=== PATIENT | female | born 1970 | race Caucasian/White ===

== ENCOUNTER 2021-03-15 11:04 | Day surgery (SDC) | payer OTHER ==
[~2021-03-15] VITALS: Ht 167.6 cm; Wt 108.0 kg
[~2021-03-15 11:04] MED LIST: CEPH500 PO; IBUP200 PO; PHENA200 PO
--- NOTE | 2021-03-15 12:20 | NUR ---
Ambulatory in Day Surgery History, Chart, Medications and Allergies reviewed before start of procedure.History, Chart, Medications and Allergies reviewed before start of procedure.Lungs clear T/O to Auscultation. Patient confirms NPO status and agrees with scheduled surgery. Patient reports completing Chlorhexadine shower X2 prior to admission to hospital. ALL BELONINGS PLACED UNDER BED. SENT BLOOD TO LAB FOR BLOOD TYPE CHECK.
--- NOTE | 2021-03-15 17:01 | NUR ---
1420 PT ARRIVED TO UNIT FROM DAY SURGERY VIA ALY, PT & ORIENTED TO ROOM AND UNIT. PROVIDED PT WITH WATER PER DIET ORDERS TOLERATED. PT RESTING IN BED AT THIS TIME, CALL LIGHT WITHIN REACH. AT BEDSIDE. WILL CONTINUE TO MONITOR. DENIES ANY PROBLEMS AT THIS TIME. DENIES N/V, N/T TO ALL EXTREMITIES.
--- NOTE | 2021-03-15 18:14 | NUR ---
SHIFT SUMMARY PT ARRIVED TO UNIT AROUND 1420 FROM DAY SURGERY. A&OX4, VSS, BLOOD PRESSURE HAS BEEN ELEVATED ALL DAY PER RN AURORA FROM DAY SURGERY, BP HAS BEGUN TO COME DOWN SOME. PT IS POD0 TOTAL LAP VAGINAL HYSTERECTOMY W/ ROBOTIC ASSIST, PT HAD EXTENSIVE ABDOMINAL ADHESIONS. 4 LAP SITES TO ABD W/ DERMABOND, C/D/I. PT RECEIVING LR AT 125ML/HR. PT TOLERATING PO FLUIDS AT THIS TIME. BROWN IN PLACE, DRAINING CLEAR YELLOW URINE. PT DENIES N/V AND N/T TO ALL EXTREMITIES. PAIN WELL CONTROLLED. PT REPORTS HEADACHE AFTER ADMINISTRATION OF MORPHINE, OFFERED COLD PACK FOR FOREHEAD, PT DENIED AND ASKED FOR ICE TEA WHICH SHE DRINKS REGULARLY. NO ACUTE EVENTS T/O SHIFT. PT RESTING IN BED AT THIS TIME, CALL LIGHT WITHIN REACH. WILL CONTINUE TO MONITOR & REPORT TO ONCOMING RN.
--- NOTE | 2021-03-15 18:50 | NUR ---
RECEIVED REPORT AND ASSUMED CARE OF PT. SHE IS AWAKE AND ALERT, LYING IN BED WITH HER AT BEDSIDE. SHE REPORTS MILD-MODERATE PAIN AT THIS TIME. WILL MEDICATE PER DEC.
[2021-03-16 04:16] LABS: BASOPHILS ABSOLUTE AUTO 0.03 K/mm3 (0.00-0.23); BASOPHILS PERCENT AUTO 0 % (0-2); EOSINOPHILS ABSOLUTE AUTO 0.02 K/mm3 (0.00-0.68); EOSINOPHILS PERCENT AUTO 0 % (0-6); Hematocrit 35.2 % (33.0-51.0); Hemoglobin 11.4 g/dL (11.5-16.0); IMMATURE GRAN ABSOLUTE AUTO 0.04 K/mm3 (0.00-0.10); IMMATURE GRAN PERCENT AUTO 0 % (0-1); LYMPHOCYTES ABSOLUTE AUTO 1.49 K/mm3 (0.84-5.20); LYMPHOCYTES PERCENT AUTO 12 % (21-46); MONOCYTES ABSOLUTE AUTO 1.07 K/mm3 (0.16-1.47); MONOCYTES PERCENT AUTO 8 % (4-13); Mean Corpuscular HGB 29.5 pg (26.0-34.0); Mean Corpuscular HGB Conc 32.4 g/dL (31.5-36.5); Mean Corpuscular Volume 91 fL (80-100); Mean Platelet Volume 10.1 fL (9.1-12.4); NEUTROPHILS ABSOLUTE AUTO 10.16 K/mm3 (1.96-9.15); NEUTROPHILS PERCENT AUTO 79 % (41-73); Platelet Count 271 K/mm3 (150-400); RDW Coefficient Variation 12.2 % (11.7-14.2); RDW Standard Deviation 40.6 fL (35.1-46.3); Red Blood Cell Count 3.87 M/mm3 (3.80-5.20); White Blood Cell Count 12.81 K/mm3 (4.00-11.30)
--- NOTE | 2021-03-16 05:52 | NUR ---
SHIFT SUMMARY: WENDY IS A&OX4. VSS, BP ELEVATED, HAS REMAINED CONSISTENT DURING HOSPITAL COURSE. EDUCATED PT ON IMPORTANCE OF BP CONTROL. SHE IS A STANDBY ASSIST TO THE BATHROOM AND IN THE ROOM. SCANT DRAINAGE TO JERRY PAD. BROWN REMOVED THIS AM, PT VOIDED 125 ML DIRECTLY AFTERWARD. LAP SITES TO ABDOMEN C/D&I. SHE REPORTS ADEQUATE PAIN CONTROL WITH ONE TABLET OF PERCOCET 5/325 MG AND A DOSE OF TORADOL. SHE DID COMPLAIN OF EPIGASTRIC PAIN WHICH WAS SIGNIFICANTLY ALLEVIATED AFTER ADMINISTRATION OF SIMETHICONE. SHE IS TOLERATING PO INTAKE WELL, IVs IN BILATERAL HANDS PATENT. SHE IS SITTING UP IN THE RECLINER AT BEDSIDE WITH THE CALL LIGHT IN REACH. WILL REPORT TO DAY SHIFT RN.
[2021-03-16] MEDS ORDERED: IBUP800 PO (12:53)
[2021-03-16] MEDS ORDERED: DOCU100 PO (12:53)
[2021-03-16] MEDS ORDERED: CLIMARA1 EACH PO (12:54)
[2021-03-16] MEDS ORDERED: Percocet 5-3251 EACH PO (12:55)
[2021-03-16] MEDS ORDERED: DULCOLAX400 MG/5 M PO (12:55)
[2021-03-16] MEDS ORDERED: PROM25 PO (12:56)
[2021-03-16] MEDS ORDERED: SENN187 PO (12:56)
[2021-03-16] MEDS ORDERED: SIME80CH PO (12:57)
--- NOTE | 2021-03-16 13:17 | NUR ---
DISCHARGE NOTE: PATIENT WAS EDUCATED ON DISCHARGE INSTRUCTIONS. SHE VERBALIZED UNDERSTANDING OF INSTRUCTIONS. HER HARD PERSCRIPTIONS ARE IN THE INSTRUCTIONS FOLDER. SHE IS ALERT AND ORIENTED X4. VS ARE WNL AND IS ON RA. PAIN IS MANAGED WITH 1 PERCOCET. PATIENT IS VOIDING AND TOLERATING PO INTAKE. SURGICAL SITES ON ABD ARE C/D/I. ABD BINDER IS ON. PATIENT HAS BEEN WHEELCHAIRED OUT AND PICKED UP BY A FAMILY MEMBER. BOTH IV'S WERE TAKEN OUT AND WERE WNL.
== END 2021-03-16 11:45 | disposition home or self-care (01) ==
LOC: ORSCMMR 11:04 → ORD 12:30 → ORSCMMR 12:30 → SURS 16:32 → ORSCMMR 03-16 11:45
PROVIDERS: Obstetrics & Gynecology
DX: D25.0 Submucous leiomyoma of uterus (principal); N92.1 Excessive and frequent menstruation with irregular cycle; D50.0 Iron deficiency anemia secondary to blood loss (chronic); N73.6 Female pelvic peritoneal adhesions (postinfective); N88.8 Other specified noninflammatory disorders of cervix uteri; D27.1 Benign neoplasm of left ovary; N83.8 Other noninflammatory disorders of ovary, fallopian tube and broad ligament; N80.2 Endometriosis of fallopian tube; I10 Essential (primary) hypertension; Z87.891 Personal history of nicotine dependence; E66.01 Morbid (severe) obesity due to excess calories; Z68.39 Body mass index [BMI] 39.0-39.9, adult
CPT/HCPCS: 58571; 49329; S2900; 36415; 85025; 86850; 86900; 86901; 88305; A9270; J0690; J1100; J1200; J1885; J2250; J2270; J2370; J2405; J2704; J3010; J7120